=== PATIENT | male | born 1975 | race American Indian/Alaskan Native ===

== ENCOUNTER 2017-10-10 12:42 | Emergency (ER) | payer SELFPAY ==
[2017-10-10 13:29] VITALS: BP 140/95
== END 2017-10-10 18:12 | disposition left against medical advice (07) ==
LOC: ED 12:42
DX: Z53.21 Procedure and treatment not carried out due to patient leaving prior to being seen by health care provider (principal)

== ENCOUNTER 2018-01-18 17:09 | Emergency (ER) | payer SELFPAY ==
[2018-01-18] MEDS ORDERED: FLUSH HEPARIN IV ONE (22:06)
[2018-01-18] MEDS ORDERED: CUBICIN 600 MG in NACL 0.9% 100 ML IV SCH (23:00)
[2018-01-19 00:16] VITALS: BP 142/88
--- NOTE | 2018-01-19 00:28 | Emergency Department Report ---
ED General Adult HPI - General Chief complaint: Medical Clearance Stated complaint: CLOGGED PICK LINE Time Seen by Provider: 01/18/18 22:01 Source: patient Mode of arrival: Ambulatory Limitations: No Limitations - History of Present Illness Initial comments: Patient is a 42-year-old -[place] male whose presenting with issue with his PICC line. Patient states he was just discharged 2 days ago from [facility] with a diagnosis of staph bacteremia. Patient is to take daptomycin daily. Patient states he first uses PICC line yesterday worked fine however when he tried to give himself his daptomycin infusion this evening his PICC line was not working patient is having no other complaints at this time - Related Data Allergies Allergy/AdvReac Type Severity Reaction Status Date / Time dapsone Allergy Unknown Verified 10/10/17 13:26 primaquine Allergy Unknown Verified 10/10/17 13:26 ED Review of Systems ROS: Stated complaint: CLOGGED PICK LINE Other details as noted in HPI Comment: All other systems reviewed and negative ED Past Medical Hx - Past Medical History Hx Hypertension: Yes Hx Headaches / Migraines: Yes Hx HIV: Yes - Social History Smoking Status: Current Every Day Smoker Substance Use Type: None ED Physical Exam - General Limitations: No Limitations General appearance: alert, in no apparent distress - Head Head exam: Present: atraumatic, normocephalic - Eye Eye exam: Present: normal appearance - ENT ENT exam: Present: mucous membranes moist - Neck Neck exam: Present: normal inspection - Respiratory Respiratory exam: Present: normal lung sounds bilaterally. Absent: respiratory distress - Cardiovascular Cardiovascular Exam: Present: regular rate, normal rhythm. Absent: systolic murmur, diastolic murmur, rubs, gallop - GI/Abdominal GI/Abdominal exam: Present: soft, normal bowel sounds - Rectal Rectal exam: Present: deferred - Extremities Exam Extremities exam: Present: normal inspection - Back Exam Back exam: Present: normal inspection - Neurological Exam Neurological exam: Present: alert, oriented X3 - Psychiatric Psychiatric exam: Present: normal affect, normal mood - Skin Skin exam: Present: warm, dry, intact, normal color. Absent: rash ED Course Vital Signs 01/18/18 01/18/18 01/18/18 17:50 22:00 22:10 Temperature 98.8 F 98 F Pulse Rate 67 Respiratory 18 Rate Blood Pressure 133/76 126/74 O2 Sat by Pulse 99 86 Oximetry 01/18/18 01/18/18 01/18/18 22:15 22:25 22:30 Temperature Pulse Rate Respiratory 16 Rate Blood Pressure 126/74 116/80 O2 Sat by Pulse 98 100 97 Oximetry 01/18/18 01/18/18 01/18/18 22:45 23:00 23:15 Temperature Pulse Rate Respiratory Rate Blood Pressure 116/80 128/89 128/89 O2 Sat by Pulse 99 100 99 Oximetry 01/18/18 01/18/18 01/19/18 23:30 23:45 00:00 Temperature Pulse Rate Respiratory Rate Blood Pressure 134/81 134/81 142/88 O2 Sat by Pulse 98 100 99 Oximetry ED Medical Decision Making - Medical Decision Making The heparin flush was attempted to unclog the patient's PICC line this is unsuccessful therefore a peripheral IV was started the patient received a dose of daptomycin and will be discharged home. Patient will need to follow-up with vascular clinic to have PICC line reinserted Critical care attestation.: If time is entered above; I have spent that time in minutes in the direct care of this critically ill patient, excluding procedure time. ED Disposition Clinical Impression: Occluded PICC line Qualifiers: Encounter type: initial encounter Qualified Code(s): T82.898A - Other specified complication of vascular prosthetic devices, implants and grafts, initial encounter Disposition: DC-01 TO HOME OR SELFCARE Is pt being admited?: No Does the pt Need Aspirin: No Condition: Stable Additional Instructions: Please follow up with the [facility] or vascular clinic to have her PICC line replaced
== END 2018-01-19 00:37 | disposition home or self-care (01) ==
LOC: ED 17:09
DX: T82.898A Other specified complication of vascular prosthetic devices, implants and grafts, initial encounter (principal); I10 Essential (primary) hypertension; G43.909 Migraine, unspecified, not intractable, without status migrainosus; F17.200 Nicotine dependence, unspecified, uncomplicated; Z88.8 Allergy status to other drugs, medicaments and biological substances
CPT/HCPCS: 96365; 96375; 99282; J0878; J1642

== ENCOUNTER 2018-01-19 16:42 | Emergency (ER) | payer SELFPAY ==
--- NOTE | 2018-01-19 18:12 | Emergency Department Report ---
ED General Adult HPI - General Chief complaint: Recheck/Abnormal Lab/Rx Stated complaint: IV ANTIBIOTICS TO BE ADMINISTERD Time Seen by Provider: 01/19/18 18:03 Source: patient Mode of arrival: Ambulatory Limitations: No Limitations - History of Present Illness Initial comments: Pt states he was inpt at [facility] from January 08 to with " septicemia" Pt stated he was dc'd with a pic line, and gives himself 500 mg iv of Daptomycin q 24 hours. Pt has a new bag of iv Daptomycin, but states his pic line is clotted. Pt states he has called [facility], and has arranged new pic on sunday Pt is requesting infusion of his Daptomycin through a periperal IV that we will place and dc. Radiation: other (pt states no h/a or pain or muscle ache) - Related Data Allergies Allergy/AdvReac Type Severity Reaction Status Date / Time dapsone Allergy Unknown Verified 10/10/17 13:26 primaquine Allergy Unknown Verified 10/10/17 13:26 ED Review of Systems ROS: Stated complaint: IV ANTIBIOTICS TO BE ADMINISTERD Other details as noted in HPI Comment: All other systems reviewed and negative Constitutional: denies: chills, fever, weakness Eyes: denies: eye pain, eye discharge, vision change ENT: denies: ear pain, throat pain Respiratory: no symptoms reported. denies: cough, shortness of breath, wheezing Cardiovascular: denies: chest pain, palpitations, dyspnea on exertion, edema, syncope, paroxysmal nocturnal dyspnea Endocrine: no symptoms reported Gastrointestinal: denies: abdominal pain, nausea, diarrhea Genitourinary: denies: urgency, dysuria, frequency, hematuria Musculoskeletal: denies: back pain, joint swelling, arthralgia Skin: denies: rash, lesions Neurological: denies: headache, weakness, paresthesias Psychiatric: denies: anxiety, depression Hematological/Lymphatic: denies: easy bleeding, easy bruising ED Past Medical Hx - Past Medical History Hx Hypertension: Yes Hx Headaches / Migraines: Yes Hx HIV: Yes - Surgical History Past Surgical History?: No - Social History Smoking Status: Never Smoker Substance Use Type: None ED Physical Exam - General Limitations: No Limitations General appearance: alert, in no apparent distress - Head Head exam: Present: atraumatic, normocephalic - Eye Eye exam: Present: normal appearance, PERRL, EOMI Pupils: Present: normal accommodation. Absent: irregular, unequal, miosis - ENT ENT exam: Present: normal orophraynx, mucous membranes moist - Neck Neck exam: Present: normal inspection - Respiratory Respiratory exam: Present: normal lung sounds bilaterally. Absent: respiratory distress - Cardiovascular Cardiovascular Exam: Present: regular rate, normal rhythm. Absent: systolic murmur, diastolic murmur, rubs, gallop - GI/Abdominal GI/Abdominal exam: Present: soft, normal bowel sounds - Rectal Rectal exam: Present: deferred - Extremities Exam Extremities exam: Present: normal inspection, full ROM, normal capillary refill. Absent: calf tenderness - Back Exam Back exam: Present: normal inspection, full ROM. Absent: CVA tenderness (R), CVA tenderness (L), rash noted - Neurological Exam Neurological exam: Present: alert, oriented X3, CN II-XII intact, normal gait, reflexes normal, other (nih=0 no facial asym, no dysarthria, no ptosis, eoms-i, perrla ). Absent: abnormal gait, motor sensory deficit - Psychiatric Psychiatric exam: Present: normal affect, normal mood - Skin Skin exam: Present: warm, dry, intact, normal color. Absent: rash ED Course Vital Signs 01/19/18 16:54 Temperature 98.9 F Pulse Rate 77 Respiratory 16 Rate O2 Sat by Pulse 100 Oximetry Critical Care Time: No Critical care attestation.: If time is entered above; I have spent that time in minutes in the direct care of this critically ill patient, excluding procedure time. ED Disposition Clinical Impression: Medication administered Occluded PICC line Qualifiers: Encounter type: subsequent encounter Qualified Code(s): T82.898D - Other specified complication of vascular prosthetic devices, implants and grafts, subsequent encounter Disposition: DC-01 TO HOME OR SELFCARE Is pt being admited?: No Does the pt Need Aspirin: No Condition: Good Additional Instructions: You must, without fail, report to your doctors who manage your septicemia and antibiotics as soon as possible. Arrange a new PIC line as soon as possible. Referrals: PRIMARY CARE, [Primary Care Provider] - 3-5 Days
[2018-01-19 19:41] VITALS: BP 122/84
== END 2018-01-19 19:43 | disposition home or self-care (01) ==
LOC: ED 16:42
DX: T82.898D Other specified complication of vascular prosthetic devices, implants and grafts, subsequent encounter (principal); I10 Essential (primary) hypertension; G43.909 Migraine, unspecified, not intractable, without status migrainosus; Z88.8 Allergy status to other drugs, medicaments and biological substances
CPT/HCPCS: 99282

== ENCOUNTER 2018-01-20 17:33 | Emergency (ER) | payer SELFPAY ==
[2018-01-20 17:41] VITALS: BP 142/85
--- NOTE | 2018-01-20 18:22 | Emergency Department Report ---
Blank Doc - Documentation Documentation: Patient is 42 years old male coming here for IV infusion off his daptomycin 500 mg. Patient was recently admitted to [facility] for septicemia and discharge from his PICC line. His PICC line is clotted and he is coming here for IV infusion of his medication. Patient does not have any symptoms other than that. Patient received his daptomycin and discharged to follow-up with his primary care physician.
== END 2018-01-20 18:36 | disposition home or self-care (01) ==
LOC: ED 17:33
DX: Z76.1 Encounter for health supervision and care of foundling (principal); Z88.8 Allergy status to other drugs, medicaments and biological substances
CPT/HCPCS: 99281; 99282